=== PATIENT | female | born 1990 | race Caucasian/White ===

== ENCOUNTER 2017-12-26 07:27 | Outpatient (CLI) | payer OTHER ==
[2017-12-26 10:40] LABS: ALBUMIN 4.4 g/dL (3.2-5.5); ALBUMIN/GLOBULIN RATIO 1.4 (1.0-2.2); CALCIUM 9.4 mg/dL (8.5-10.3); CREATININE 0.7 mg/dL (0.4-1.0); TOTAL PROTEIN 7.5 g/dL (6.7-8.2)
[2017-12-26 10:48] LABS: BASOPHILS # (AUTO) 0.1 10^3/uL (0.0-0.1); BASOPHILS % (AUTO) 1.1 %; EOSINOPHILS # (AUTO) 0.1 10^3/uL (0.0-0.7); EOSINOPHILS % (AUTO) 1.7 %; HGB - HEMOGLOBIN 13.6 g/dL (12.0-16.0); LYMPHOCYTES % (AUTO) 20.9 %; MEAN CORPUSCULAR HEMOGLOBIN 31.6 pg (27.0-31.0); MEAN CORPUSCULAR VOLUME 93.2 fL (81.0-99.0); MEAN PLATELET VOLUME 8.4 fL (7.9-10.8); MONOCYTES # (AUTO) 0.4 10^3/uL (0.0-1.0); MONOCYTES % (AUTO) 9.5 %; NEUTROPHILS # (AUTO) 3.1 10^3/uL (1.5-6.6); NEUTROPHILS % (AUTO) 66.8 %; PLT - PLATELET COUNT 242 10^3/uL (130-450); RED BLOOD COUNT 4.31 10^6/uL (4.20-5.40); RED CELL DISTRIBUTION WIDTH 12.6 % (12.0-15.0); WHITE BLOOD COUNT 4.6 x10^3/uL (4.8-10.8)
[2017-12-26 10:58] LABS: THYROID STIMULATING HORMONE 2.07 uIU/mL (0.34-5.60)
[2017-12-26 11:00] LABS: FREE T4 (FREE THYROXINE) 0.98 ng/dL (0.58-1.64)
== END 2017-12-26 07:28 | disposition home or self-care (01) ==
LOC: LAB.F 07:27
PROVIDERS: ATTEND Registered Nurse
DX: F41.1 Generalized anxiety disorder (principal)
CPT/HCPCS: 36415; 80053; 84439; 84443; 84481; 85025

== ENCOUNTER 2020-01-13 12:22 | Outpatient (CLI) | payer OTHER | END 2020-01-13 12:23 | disposition home or self-care (01) | LOC: COV 12:22 | PROVIDERS: ATTEND Family Medicine | DX: Z20.828 Contact with and (suspected) exposure to other viral communicable diseases (principal) ==

== ENCOUNTER 2020-04-19 11:54 | Outpatient (CLI) | payer OTHER | END 2020-04-19 11:55 | disposition home or self-care (01) | LOC: COV 11:54 | PROVIDERS: ATTEND Family Medicine | DX: R05 Cough (principal); R07.0 Pain in throat; R09.81 Nasal congestion; Z20.822 Contact with and (suspected) exposure to COVID-19 ==

== ENCOUNTER 2021-03-25 11:03 | Outpatient (CLI) | payer OTHER ==
[2021-03-25 15:43] LABS: BASOPHILS # (AUTO) 0.1 10^3/uL (0.0-0.1); BASOPHILS % (AUTO) 0.9 %; EOSINOPHILS # (AUTO) 0.3 10^3/uL (0.0-0.7); EOSINOPHILS % (AUTO) 3.1 %; HCT - HEMATOCRIT 39.3 % (37.0-47.0); HGB - HEMOGLOBIN 12.5 g/dL (12.0-16.0); LYMPHOCYTES # (AUTO) 1.8 10^3/uL (1.5-3.5); LYMPHOCYTES % (AUTO) 22.5 %; MEAN CORPUSCULAR HEMOGLOBIN 28.5 pg (27.0-31.0); MEAN CORPUSCULAR HGB CONC 31.8 g/dL (32.0-36.0); MEAN CORPUSCULAR VOLUME 89.5 fL (81.0-99.0); MEAN PLATELET VOLUME 9.9 fL (7.9-10.8); MONOCYTES # (AUTO) 0.5 10^3/uL (0.0-1.0); MONOCYTES % (AUTO) 6.7 %; NEUTROPHILS # (AUTO) 5.3 10^3/uL (1.5-6.6); NEUTROPHILS % (AUTO) 66.4 %; PLT - PLATELET COUNT 427 10^3/uL (130-450); RED BLOOD COUNT 4.39 10^6/uL (4.20-5.40); RED CELL DISTRIBUTION WIDTH 12.3 % (12.0-15.0); WHITE BLOOD COUNT 7.9 x10^3/uL (4.8-10.8)
[2021-03-25 15:59] LABS: ALBUMIN 3.6 g/dL (3.2-5.5); BILIRUBIN,TOTAL 0.4 mg/dL (0.2-1.0); CALCIUM 8.9 mg/dL (8.5-10.3); CREATININE 0.7 mg/dL (0.4-1.0); POTASSIUM 3.8 mmol/L (3.5-5.0); TOTAL PROTEIN 7.1 g/dL (6.7-8.2)
[2021-03-25 16:08] LABS: THYROID STIMULATING HORMONE 1.73 uIU/mL (0.34-5.60)
== END 2021-03-25 11:04 | disposition home or self-care (01) ==
LOC: LAB.S 11:03
PROVIDERS: ATTEND Physician Assistant
DX: R53.83 Other fatigue (principal); N92.0 Excessive and frequent menstruation with regular cycle
CPT/HCPCS: 36415; 80053; 83540; 84443; 84466; 85025

== ENCOUNTER 2022-11-19 13:18 | Outpatient (CLI) | payer OTHER ==
[2022-11-19 20:11] LABS: BASOPHILS # (AUTO) 0.1 10^3/uL (0.0-0.1); BASOPHILS % (AUTO) 0.9 %; EOSINOPHILS # (AUTO) 0.1 10^3/uL (0.0-0.7); EOSINOPHILS % (AUTO) 1.1 %; HCT - HEMATOCRIT 30.3 % (37.0-47.0); HGB - HEMOGLOBIN 8.7 g/dL (12.0-16.0); LYMPHOCYTES # (AUTO) 2.2 10^3/uL (1.5-3.5); LYMPHOCYTES % (AUTO) 18.9 %; MEAN CORPUSCULAR HGB CONC 28.7 g/dL (32.0-36.0); MEAN CORPUSCULAR VOLUME 76.7 fL (81.0-99.0); MEAN PLATELET VOLUME 9.4 fL (7.9-10.8); MONOCYTES # (AUTO) 0.8 10^3/uL (0.0-1.0); NEUTROPHILS # (AUTO) 8.3 10^3/uL (1.5-6.6); NEUTROPHILS % (AUTO) 71.8 %; PLT - PLATELET COUNT 580 10^3/uL (130-450); RED BLOOD COUNT 3.95 10^6/uL (4.20-5.40); RED CELL DISTRIBUTION WIDTH 16.2 % (12.0-15.0); WHITE BLOOD COUNT 11.5 x10^3/uL (4.8-10.8)
[2022-11-19 20:18] LABS: % IRON SATURATION 3 % (20-50); ALBUMIN 3.6 g/dL (3.2-5.5); ALBUMIN/GLOBULIN RATIO 1.2 (1.0-2.2); ALKALINE PHOSPHATASE 94 IU/L (42-121); ALT ALANINE AMINOTRANSFERASE 19 IU/L (10-60); AST ASPARTATE AMINOTRANSFERASE 24 IU/L (10-42); BILIRUBIN,TOTAL 0.3 mg/dL (0.2-1.0); BUN - BLOOD UREA NITROGEN 4 mg/dL (6-20); CALCIUM 8.6 mg/dL (8.5-10.3); CARBON DIOXIDE - CO2 28 mmol/L (21-32); CHLORIDE 104 mmol/L (101-111); CHOL/HDL RATIO 2.6 (<4.4); CHOLESTEROL 174 mg/dL; CREATININE 0.6 mg/dL (0.6-1.3); GFR - MDRD 117 (>89); GLUCOSE 106 mg/dL (74-104); HDL CHOLESTEROL 67 mg/dL; IRON 15 ug/dL (50-212); LDL CHOLESTEROL,CALCULATED 91 mg/dL; LDL/HDL RATIO 1.4 (<4.4); POTASSIUM 3.7 mmol/L (3.5-4.5); SODIUM 137 mmol/L (135-145); TOTAL IRON BINDING CAPACITY 577 ug/dL (250-450); TOTAL PROTEIN 6.6 g/dL (6.4-8.9); TRANSFERRIN 412 mg/dL (203-362); TRIGLYCERIDES 82 mg/dL (48-352); VLDL CHOLESTEROL 16 mg/dL
[2022-11-19 20:34] LABS: THYROID STIMULATING HORMONE 1.93 uIU/mL (0.34-5.60)
[2022-11-19 20:39] LABS: FERRITIN 4.9 ng/mL (11.0-306.8)
== END 2022-11-19 13:19 | disposition home or self-care (01) ==
LOC: LAB.S 13:18
PROVIDERS: ATTEND Physician Assistant
DX: Z13.9 Encounter for screening, unspecified (principal); N92.0 Excessive and frequent menstruation with regular cycle
CPT/HCPCS: 36415; 80053; 80061; 82728; 83540; 83721; 84443; 84466; 85025

== ENCOUNTER 2023-01-14 13:10 | Outpatient (CLI) | payer OTHER ==
[2023-01-14 19:57] LABS: BASOPHILS # (AUTO) 0.1 10^3/uL (0.0-0.1); BASOPHILS % (AUTO) 0.8 %; EOSINOPHILS # (AUTO) 0.1 10^3/uL (0.0-0.7); EOSINOPHILS % (AUTO) 0.4 %; HCT - HEMATOCRIT 38.3 % (37.0-47.0); HGB - HEMOGLOBIN 11.9 g/dL (12.0-16.0); LYMPHOCYTES # (AUTO) 1.6 10^3/uL (1.5-3.5); LYMPHOCYTES % (AUTO) 12.5 %; MEAN CORPUSCULAR HEMOGLOBIN 28.5 pg (27.0-31.0); MEAN CORPUSCULAR HGB CONC 31.1 g/dL (32.0-36.0); MEAN CORPUSCULAR VOLUME 91.8 fL (81.0-99.0); MEAN PLATELET VOLUME 9.3 fL (7.9-10.8); MONOCYTES # (AUTO) 0.8 10^3/uL (0.0-1.0); NEUTROPHILS # (AUTO) 10.2 10^3/uL (1.5-6.6); NEUTROPHILS % (AUTO) 79.9 %; NRBC ABSOLUTE COUNT (AUTO) 0.03 x10^3/uL; NUCLEATED RED BLOOD CELLS AUTO 0.2 /100WBC; PLT - PLATELET COUNT 487 10^3/uL (130-450); RED BLOOD COUNT 4.17 10^6/uL (4.20-5.40); RED CELL DISTRIBUTION WIDTH 24.4 % (12.0-15.0); WHITE BLOOD COUNT 12.7 x10^3/uL (4.8-10.8)
[2023-01-14 20:28] LABS: FERRITIN 98.6 ng/mL (11.0-306.8)
[2023-01-14 21:00] LABS: PLATELET ESTIMATE, MANUAL INCREASED (>450,000) (NORMAL); PLATELET MORPHOLOGY NORMAL APPEARANCE (NORMAL); SLIDE REVIEW? Indicated
== END 2023-01-14 13:11 | disposition home or self-care (01) ==
LOC: LAB.S 13:10
PROVIDERS: ATTEND Physician Assistant
DX: D50.9 Iron deficiency anemia, unspecified (principal)
CPT/HCPCS: 36415; 82728; 83540; 84466; 85025

== ENCOUNTER 2023-01-29 10:06 | Outpatient (CLI) | payer OTHER ==
[2023-01-29 10:15] LABS: HCT - HEMATOCRIT 36.8 % (37.0-47.0); HGB - HEMOGLOBIN 11.3 g/dL (12.0-16.0); MEAN CORPUSCULAR HEMOGLOBIN 30.3 pg (27.0-31.0); MEAN CORPUSCULAR HGB CONC 30.7 g/dL (32.0-36.0); MEAN CORPUSCULAR VOLUME 98.7 fL (81.0-99.0); MEAN PLATELET VOLUME 8.6 fL (7.9-10.8); RED BLOOD COUNT 3.73 10^6/uL (4.20-5.40); RED CELL DISTRIBUTION WIDTH 19.5 % (12.0-15.0); WHITE BLOOD COUNT 7.6 x10^3/uL (4.8-10.8)
[2023-01-29 10:28] LABS: CHOL/HDL RATIO 2.9 (<4.4); CHOLESTEROL 179 mg/dL; GLUCOSE,FASTING 110 mg/dL (74-104); HDL CHOLESTEROL 61 mg/dL; LDL CHOLESTEROL,CALCULATED 95 mg/dL; LDL/HDL RATIO 1.6 (<4.4); TRIGLYCERIDES 117 mg/dL (48-352); VLDL CHOLESTEROL 23 mg/dL
[2023-01-29 10:44] LABS: THYROID STIMULATING HORMONE 1.92 uIU/mL (0.34-5.60)
[2023-01-29 12:00] LABS: ESTIMATED AVERAGE GLUCOSE 80 mg/dL (70-100); HEMOGLOBIN A1c% 4.4 % (4.27-6.07)
== END 2023-01-29 10:07 | disposition home or self-care (01) ==
LOC: LAB 10:06
PROVIDERS: ATTEND Obstetrics & Gynecology
DX: N93.9 Abnormal uterine and vaginal bleeding, unspecified (principal); Z13.220 Encounter for screening for lipoid disorders
CPT/HCPCS: 36415; 80061; 82947; 83036; 83721; 84443; 85027

== ENCOUNTER 2023-02-12 13:06 | Outpatient (CLI) | payer OTHER ==
[2023-02-12 14:34] LABS: BASOPHILS # (AUTO) 0.1 10^3/uL (0.0-0.1); EOSINOPHILS # (AUTO) 0.1 10^3/uL (0.0-0.7); EOSINOPHILS % (AUTO) 1.3 %; HCT - HEMATOCRIT 34.2 % (37.0-47.0); HGB - HEMOGLOBIN 10.4 g/dL (12.0-16.0); LYMPHOCYTES # (AUTO) 1.7 10^3/uL (1.5-3.5); MEAN CORPUSCULAR HEMOGLOBIN 31.5 pg (27.0-31.0); MEAN CORPUSCULAR HGB CONC 30.4 g/dL (32.0-36.0); MEAN CORPUSCULAR VOLUME 103.6 fL (81.0-99.0); MEAN PLATELET VOLUME 9.2 fL (7.9-10.8); MONOCYTES # (AUTO) 0.8 10^3/uL (0.0-1.0); MONOCYTES % (AUTO) 7.9 %; NEUTROPHILS # (AUTO) 7.2 10^3/uL (1.5-6.6); NEUTROPHILS % (AUTO) 72.4 %; NRBC ABSOLUTE COUNT (AUTO) 0.03 x10^3/uL; NUCLEATED RED BLOOD CELLS AUTO 0.3 /100WBC; PLT - PLATELET COUNT 510 10^3/uL (130-450); RED CELL DISTRIBUTION WIDTH 15.4 % (12.0-15.0)
== END 2023-02-12 13:07 | disposition home or self-care (01) ==
LOC: LAB.S 13:06
PROVIDERS: ATTEND Obstetrics & Gynecology
DX: Z01.812 Encounter for preprocedural laboratory examination (principal); D25.9 Leiomyoma of uterus, unspecified
CPT/HCPCS: 36415; 81025; 85025

== ENCOUNTER 2023-02-14 06:18 | Day surgery (SDC) | payer OTHER ==
[2023-02-14] MEDS ORDERED: ceFAZolin 2 GM VIAL ONE (06:28)
[2023-02-14] MEDS ORDERED: ACETAMINOPHEN 325 MG TABLET PO ONE (06:28)
[2023-02-14] MEDS ORDERED: metroNIDAZOLE 500 MG/100 ML 500 MG/100 ML BAG ONE (06:28)
[2023-02-14] MEDS ORDERED: LACTATED RINGERS 1,000 ML IV ONE ×2 (06:40→09:31)
[2023-02-14] MEDS ORDERED: BUPIVACAINE 0.5%-EPI 1:200000 PF 30 ML VIAL ONE (07:10)
[2023-02-14] MEDS ORDERED: fentaNYL 100 MCG/2 ML VIAL ONE (07:10)
[2023-02-14] MEDS ORDERED: PROPOFOL 200 MG/20 ML VIAL IVP ONE (07:10)
[2023-02-14] MEDS ORDERED: MIDAZOLAM 2 MG/2 ML VIAL ONE (07:10)
[2023-02-14] MEDS ORDERED: LIDOCAINE-MPF 1% 30 ML VIAL ONE (07:11)
[2023-02-14] MEDS ORDERED: LIDOCAINE 1%-EPI 1:100000 20 ML MDV ONE (07:11)
[2023-02-14] MEDS ORDERED: BUPIVACAINE 0.25% PF 30 ML VIAL ONE (07:11)
[2023-02-14 07:34] LABS: HCG UR QUAL NEGATIVE
[2023-02-14] MEDS ORDERED: DEXAMETHASONE 4 MG/ML VIAL ONE (08:39)
[2023-02-14] MEDS ORDERED: ONDANSETRON 4 MG/2 ML VIAL ONE (08:39)
[2023-02-14] MEDS ORDERED: HYDROmorphone 1 MG/ML CARPUJECT ONE (08:46)
[2023-02-14] MEDS ORDERED: KETOROLAC 30 MG/ML VIAL ONE (09:21)
--- NOTE | 2023-02-14 09:41 | ANESTHESIA ---
Pre-Anesthesia VS, & Labs - Diagnosis leiomyoma - Procedure hysterscopy with myomectomy Vital Signs: Temp Pulse Resp BP Pulse Ox O2 Flow Rate 36.2 C L 109 H 16 147/88 H 100 02/14/23 06:47 02/14/23 06:47 02/14/23 06:47 02/14/23 06:47 02/14/23 06:47 Height: 5 ft 5 in Weight (kg): 93.2 kg Body Mass Index: 34.2 BMI Classification: Obese - NPO >8 hours - Is Patient ?: No - Lab Results Lab results reviewed: Yes Home Medications and Allergies Home Medications: Ambulatory Orders Losartan [Cozaar] 50 mg PO DAILY 02/08/23 Multivitamin 1 each PO DAILY 02/08/23 buPROPion [Wellbutrin Xl] 150 mg PO DAILY 02/08/23 Losartan [Cozaar] 50 mg PO DAILY 02/08/23 Multivitamin 1 each PO DAILY 02/08/23 buPROPion [Wellbutrin Xl] 150 mg PO DAILY 02/08/23 Allergies/Adverse Reactions: Allergies Allergy/AdvReac Type Severity Reaction Status Date / Time No Known Drug Allergies Allergy Verified 12/21/22 10:53 Anes History & Medical History - Anesthetic History Anesthesia Complications: reports: No previous complications Family history of Anesthesia Complications: Denies Family history of Malignant Hyperthermia: Denies - Medical History Cardiovascular: reports: Hypertension Pulmonary: reports: None Gastrointestinal: reports: None Urinary: reports: None Neuro: reports: None Musculoskeletal: reports: None Endocrine/Autoimmune: reports: None Blood Disorders: reports: Anemia Skin: reports: None Smoking Status: Never smoker Psychosocial: reports: Anxiety, Alcohol (2-3 shots whiskey 2-3x per week), Cannabis (occ.) History of Cancer?: No Exam General: Alert, Oriented x3, Cooperative Dental: WNL Mouth Openin Fingerbreadth Neck Mobility: Normal Mallampati classification: II Thyromental Distance: 4-6 cm Respiratory: Lungs clear, Normal breath sounds, No respiratory distress Cardiovascular: Regular rate Neurological: Normal speech Mental/Cognitive Status: Alert/Oriented X3, Normal for patient Cognitive Status: Within normal limits Plan Anesthesia Type: General Consent for Procedure(s) Verified and Reviewed: Yes Code Status: Attempt Resuscitation ASA classification: 2-Mild systemic disease Is this case an emergency?: No
[2023-02-14] MEDS ORDERED: fentaNYL 100 MCG/2 ML VIAL IVP PRN (09:43)
[2023-02-14] MEDS ORDERED: ATROPINE ABBOJECT 1 MG/10 ML SYRINGE IVP PRN (09:43)
[2023-02-14] MEDS ORDERED: HYDROmorphone 0.5 MG/0.5 ML SYRINGE IVP PRN (09:43)
[2023-02-14] MEDS ORDERED: ONDANSETRON 4 MG/2 ML VIAL IVP PRN ×2 (09:43→09:48)
[2023-02-14] MEDS ORDERED: MORPHINE 2 MG/ML CARPUJECT IVP PRN (09:43)
[2023-02-14] MEDS ORDERED: NALOXONE 0.4 MG/ML VIAL IVP PRN (09:43)
[2023-02-14] MEDS ORDERED: oxyCODONE 5 MG TABLET PO PRN (09:48)
[2023-02-14] MEDS ORDERED: LACTATED RINGERS 1,000 ML IV SCH (10:00)
[2023-02-14 10:37] VITALS: BP 169/94; O2SAT 98
--- NOTE | 2023-02-14 11:55 | ANESTHESIA POST OP EVALUATION ---
Anesthesia Post Eval - Post Anesthesia Eval Vitals: Last Vital Signs Temp 36.1 C L 02/14/23 10:26 Pulse 98 02/14/23 10:26 Resp 16 02/14/23 10:26 BP 169/94 H 02/14/23 10:26 Pulse Ox 98 02/14/23 10:26 O2 Flow Rate CV Function Including HR & BP: Stable Pain Control: Satisfactory Nausea & Vomiting: Negative Mental Status: Baseline Respiratory Status: Airway Patent Hydration Status: Satisfactory Anesthesia Complications: None
--- NOTE | 2023-02-14 16:10 | OPERATIVE REPORT ---
Operative Report - General Procedure Date: 02/14/23 Planned Procedure: hysteroscopic myomectomy with Myosure device. Pre-Op Diagnosis: submucosal myoma Procedure Performed: hysteroscopic myomectomy with Myosure device. Post Op Diagnosis: submucosal myoma - Procedure Note Primary Surgeon: Krystyna Nguyễn MD Anesthesia Provider: Jose Alvarez CRNA Anesthesia Technique: General LMA Pathology: myoma fragments. IV Fluids (mL): 700 Estimated Blood Loss (mL): 10 Urine Output (mL): 0 Indications: bleeding from submucosal myoma not better with hormonal management. Findings: 2 fibroids on anterior uterus. about 1.5 and 2 cm next to each other. was not able to visualize with tubal orifices well. Complications: none - Other Other Information/Narrative: Patient with neg test. consents reviewed and signed. brought to OR and general anesthesia was given. prepped and draped with betadine. legs in Pepe type stirrups. exam done. time out done. speculum placed. cervix with small os. dilated easily. sounded to 11 cm. 6 mm hysteroscope placed. light in scope not working properly. many equipment pieces were replaced. able to see 2 myomas on anterior of uterus, completely submucosal. myosure Reach used to detached first smaller fibroid completely. second fibroid I got most of the base removed but then deficit was 2000 cc. much of the fluid was on the ground. but at that point, I felt that enough of the fibroid base had been removed and did not want to continue with such a high deficit that I was not able to quantify. I think what remains of that fibroid will fall off. I did try to pull it off with a polyp forceps but was not able to get it and after that, cervix leaked more water. I told family to expect that she will have some tissue coming out. Patient was awakened and brought to the PACU in stable condition. counts were correct.
== END 2023-02-14 06:19 | disposition home or self-care (01) ==
LOC: SDS 06:18
PROVIDERS: ATTEND Obstetrics & Gynecology
PROC: 0UB98ZZ Excision of Uterus, Via Natural or Artificial Opening Endoscopic (ICD-10-PCS; principal; 2023-02-14 07:30)
DX: D25.0 Submucous leiomyoma of uterus (principal); I10 Essential (primary) hypertension; E66.9 Obesity, unspecified; Z68.34 Body mass index [BMI] 34.0-34.9, adult; Z32.02 Encounter for pregnancy test, result negative
CPT/HCPCS: 58561; 81025; A9270; J1170; J7120

== ENCOUNTER 2023-03-07 07:02 | Outpatient (CLI) | payer OTHER ==
--- NOTE | 2023-03-07 13:34 | Ultrasound Report ---
PROCEDURE: Pelvic w/Transvaginal INDICATIONS: LEIOMYOMA TECHNIQUE: Real-time scanning was performed of the pelvic organs, with image documentation. Additional endovagi nal scanning was necessary due to incomplete visualization of the adnexal and endometrial structures by transabdominal scanning. COMPARISON: 11/26/2022 FINDINGS: Uterus: Uterus is anteverted and normal in size at 8.9 x 5.4 x 5.7 cm. The myometrium is heterogene ous with a 2.4 x 2.6 x 2.5 cm mixed echogenic focus within the endometrium. Previously seen intrauter ine fibroid is no longer visualized and likely surgically resected given history of myomectomy. No hy pervascularity. The endometrium measures 7 mm in combined thickness. Ovaries: The right ovary measures 2.3 x 1.5 x 1.9 cm, with a calculated ovarian volume of 3.45 cc. The left ovary measures 3.1 x 1.5 x 1.4 cm, with a calculated ovarian volume of 3.3 cc. The ovaries have a normal sonographic appearance. Less than 12 follicles can be seen in each ovary. No adnexal masses are seen. No cystic lesions measuring greater than 3 cm. Other: No pathologic free abdominal or pelvic fluid. IMPRESSION: Heterogeneous, mixed echogenic focus seen within the endometrium measuring 2.4 x 2.6 x 2.5 cm. Findin gs may represent post laminectomy changes versus less likely new endometrial mass. Previously describ ed submucosal uterine fibroid is no longer visualized and likely resected given history of myomectomy . Follow-up pelvic ultrasound recommended. Normal sonographic appearance of the bilateral ovaries/adnexa. Reviewed by: Obinna Garrido MD on 03/07/2023 1:33 PM PST Approved by: Obinna Garrido MD on 03/07/2023 1:33 PM PST Station ID: [id number]
== END 2023-03-07 07:03 | disposition home or self-care (01) ==
LOC: DI 07:02
PROVIDERS: ATTEND Obstetrics & Gynecology
DX: D25.0 Submucous leiomyoma of uterus (principal)

== ENCOUNTER 2023-03-14 06:31 | Day surgery (SDC) | payer OTHER ==
[~2023-03-14 06:31] MED LIST: ACETAMINOPHEN 325 MG TABLET PO ONE; ceFAZolin 2 GM VIAL ONE; metroNIDAZOLE 500 MG/100 ML 500 MG/100 ML BAG ONE
[2023-03-14 06:50] LABS: HCG UR QUAL NEGATIVE
[2023-03-14] MEDS ORDERED: LACTATED RINGERS 1,000 ML IV ONE ×2 (06:53→09:13)
[2023-03-14] MEDS ORDERED: PROPOFOL 200 MG/20 ML VIAL IVP ONE (07:15)
[2023-03-14] MEDS ORDERED: fentaNYL 100 MCG/2 ML VIAL ONE (07:15)
[2023-03-14] MEDS ORDERED: MIDAZOLAM 2 MG/2 ML VIAL ONE (07:16)
--- NOTE | 2023-03-14 07:24 | ANESTHESIA ---
Pre-Anesthesia VS, & Labs - Diagnosis unterine leiomyoma - Procedure hysterscopy with myosure leiomyoma removal Vital Signs: Temp Pulse Resp BP Pulse Ox O2 Flow Rate 36.1 C L 117 H 16 152/99 H 100 03/14/23 06:54 03/14/23 06:54 03/14/23 06:54 03/14/23 06:54 03/14/23 06:54 Height: 5 ft 5 in Weight (kg): 93.5 kg Body Mass Index: 34.2 BMI Classification: Obese - NPO >8 hours - Is Patient ?: No Home Medications and Allergies Losartan [Cozaar] 50 mg PO DAILY 02/08/23 Multivitamin 1 each PO DAILY 02/08/23 buPROPion [Wellbutrin Xl] 150 mg PO DAILY 02/08/23 Allergies/Adverse Reactions: Allergies Allergy/AdvReac Type Severity Reaction Status Date / Time No Known Drug Allergies Allergy Verified 03/14/23 07:02 Anes History & Medical History - Anesthetic History Anesthesia Complications: reports: No previous complications - Medical History Cardiovascular: reports: Hypertension Pulmonary: reports: None Gastrointestinal: reports: None Urinary: reports: None Neuro: reports: None Musculoskeletal: reports: None Endocrine/Autoimmune: reports: None Blood Disorders: reports: Anemia Skin: reports: None Smoking Status: Never smoker Psychosocial: reports: Anxiety History of Cancer?: No - Surgical History Gynecologic: reports: Other (hysterscopy) Exam General: Alert, Oriented x3, Cooperative, No acute distress Dental: WNL Mouth Openin Fingerbreadth Neck Mobility: Normal Mallampati classification: II Thyromental Distance: 4-6 cm Mental/Cognitive Status: Alert/Oriented X3, Normal for patient Plan Anesthesia Type: General Consent for Procedure(s) Verified and Reviewed: Yes Code Status: Attempt Resuscitation ASA classification: 2-Mild systemic disease Is this case an emergency?: No
[2023-03-14] MEDS ORDERED: HYDROmorphone 0.5 MG/0.5 ML SYRINGE IVP PRN (07:27)
[2023-03-14] MEDS ORDERED: ONDANSETRON 4 MG/2 ML VIAL IVP PRN ×2 (07:27→09:59)
[2023-03-14] MEDS ORDERED: NALOXONE 0.4 MG/ML VIAL IVP PRN (07:27)
[2023-03-14] MEDS ORDERED: fentaNYL 100 MCG/2 ML VIAL IVP PRN (07:27)
[2023-03-14] MEDS ORDERED: ATROPINE ABBOJECT 1 MG/10 ML SYRINGE IVP PRN (07:27)
[2023-03-14] MEDS ORDERED: MORPHINE 2 MG/ML CARPUJECT IVP PRN (07:27)
[2023-03-14] MEDS ORDERED: ONDANSETRON 4 MG/2 ML VIAL ONE (07:58)
[2023-03-14] MEDS ORDERED: DEXAMETHASONE 4 MG/ML VIAL ONE (07:58)
[2023-03-14] MEDS ORDERED: KETOROLAC 30 MG/ML VIAL ONE (07:58)
[2023-03-14] MEDS ORDERED: LACTATED RINGERS 1,000 ML IV SCH (08:00)
[2023-03-14] MEDS ORDERED: HYDROmorphone 1 MG/ML CARPUJECT ONE (08:41)
[2023-03-14 09:58] VITALS: BP 155/96; O2SAT 97
[2023-03-14] MEDS ORDERED: oxyCODONE 5 MG TABLET PO PRN (09:59)
--- NOTE | 2023-03-14 10:25 | HISTORY & PHYSICAL EXAMINATION ---
HPI - Admitted From Admitted from: Direct admit - History Obtained From Records Reviewed: RN notes reviewed History obtained from: Patient Exam limitations: No limitations - History of Present Illness HPI Comment/Other: Patient is s/p hysteroscopy with myomectomy 4 weeks ago. At that time, I was not able to get her entire fibroid out before the deficit max was reached. She continues to bleed every day, some days heavy. She is quite frustrated. She is here today for me to remove the rest of the fibroid. She did have depo Provera injection about 8 weeks ago. She has tried TXA to stop the bleeding both before and after her first procedure and it has not helped. Most recent ultrasound did not show a discrete fibroid. 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 denies: Fever - Genitourinary Genitourinary: reports: Other (some cramps and continue bleeding, sometimes with clots.) Exam - Vital Signs Reviewed Vital Signs: Yes Vital Signs: Vital Signs x48h Temp Pulse Resp BP Pulse Ox 03/14/23 09:52 97.2 F L 102 H 14 155/96 H 97 03/14/23 09:40 97.9 F 86 14 136/91 H 98 03/14/23 09:35 97.9 F 90 16 135/82 H 98 03/14/23 09:30 97.9 F 93 14 129/76 97 03/14/23 09:25 97.5 F L 97 14 139/81 H 96 03/14/23 09:20 97.3 F L 101 H 15 133/83 H 96 03/14/23 09:15 97.3 F L 101 H 16 140/84 H 98 03/14/23 09:11 97.3 F L 106 H 18 134/84 H 98 03/14/23 06:54 97.0 F L 117 H 16 152/99 H 100 - Physical Exam General Appearance: positive: No acute distress, Alert Respiratory: positive: No respiratory distress Cardiovascular: positive: Regular rate & rhythm Abdomen: positive: Non-tender Results - Lab Results Other Lab Results: Lab Results x24hrs 03/14/23 Range/Units 06:32 Urine HCG, Qual NEGATIVE Impression/Plan - Problem List Problem List: submucosal myoma still present. was not removed completely with first hysteroscopy. Here today for another procedure to remove the fibroid and hopefully with this she will stop bleeding. Procedure, consents reviewed and signed.
--- NOTE | 2023-03-14 10:31 | OPERATIVE REPORT ---
Operative Report - General Procedure Date: 03/14/23 Planned Procedure: Hysteroscopic Myomectomy Pre-Op Diagnosis: Submucosal myoma Procedure Performed: Hysteroscopic Myomectomy using Myosure device. Post Op Diagnosis: myoma removed - Procedure Note Primary Surgeon: Krystyna Nguyễn MD Anesthesia Provider: Zeny Alvarez CRNA Anesthesia Technique: General LMA Pathology: uterine myoma IV Fluids (mL): 800 Estimated Blood Loss (mL): 50 Urine Output (mL): 0 Indications: bleeding from uterine submucosal myoma that was incompletely removed after hysteroscopic myomectomy 4 weeks ago. Here today to remove the rest of the myomas. Complications: approximately 3.5 cm myoma on a 6 mm stalk near the posterior fundus of uterus. - Other Other Information/Narrative: Patient has signed consents. Flagyl 500 mg and Ancef 2 gm given iv. Brought to OR where LMA general anesthesia is given. Put in Pepe stirrups and prepped. time out done. Exam under anesthesia done. Speculum placed. cervix grasped with a single tooth tenaculum. Dilated to allow 6 mm hysteroscope to pass. placed and cavity viewed. great visualization. Approx 3.5 cm fibroid present near fundus on a stalk. At the procedure 4 weeks ago there was another fibroid as well, but it looks like no procedure had been done to this fibroid, which surprised me. There were some clots in the cavity that came out. No active bleeding was seen. The tubal ostia were not visible clearly, them must be very small with the depo Provera as I could see the entire cavity quite clearly. I think I saw tiny dots bilaterally. The Myosure Reach was used to remove the fibroid at its base and then remove as much of the tissue as possible. I tried to pull out pieces with a curette and a polyp forceps but did not grasp them. I was not able to collect them with the Myosure as they kept floating away. In the end, their were 6 small fragments of myoma sitting on the posterior uterus loose. They were about 0.5 cm wide or less. This was explained to patient and her mom and photographed. They will pass on their own. The procedure was then completed. Instruments were removed. Patient was awakened and brought to recovery room in stable condition. Pictures and procedure reviewed with her mom and then with Jo once she was awake. Fluid deficit from Myosure 950 cc.
--- NOTE | 2023-03-14 10:44 | ANESTHESIA POST OP EVALUATION ---
Anesthesia Post Eval - Post Anesthesia Eval Vitals: Last Vital Signs Temp 36.2 C L 03/14/23 09:52 Pulse 102 H 03/14/23 09:52 Resp 14 03/14/23 09:52 BP 155/96 H 03/14/23 09:52 Pulse Ox 97 03/14/23 09:52 O2 Flow Rate CV Function Including HR & BP: Stable Pain Control: Satisfactory Nausea & Vomiting: Negative Mental Status: Baseline Respiratory Status: Airway Patent Hydration Status: Satisfactory Anesthesia Complications: None
== END 2023-03-14 06:32 | disposition home or self-care (01) ==
LOC: SDS 06:31
PROVIDERS: ATTEND Obstetrics & Gynecology
PROC: 0UB98ZZ Excision of Uterus, Via Natural or Artificial Opening Endoscopic (ICD-10-PCS; principal; 2023-03-14 07:30)
DX: D25.0 Submucous leiomyoma of uterus (principal); N93.9 Abnormal uterine and vaginal bleeding, unspecified; E66.9 Obesity, unspecified; Z68.34 Body mass index [BMI] 34.0-34.9, adult; I10 Essential (primary) hypertension
CPT/HCPCS: 58561; 81025; A9270; J1170; J7120

== ENCOUNTER 2023-11-11 18:06 | Emergency (ER) | payer OTHER ==
[2023-11-11 18:24] VITALS: BP 155/95; O2SAT 97
[2023-11-11] MEDS: KETOROLAC 60 MG/2 ML VIAL IM STA (21:41)
[2023-11-11] MEDS: predniSONE 20 MG TABLET PO STA (21:41)
[2023-11-11] MEDS: oxyCODONE 5 MG TABLET PO STA (21:41)
--- NOTE | 2023-11-11 21:46 | ED Physician Documentation ---
History of Present Illness - Stated complaint Stated Complaint: RT LEG PX - Chief complaint Chief Complaint: Ext Problem - History obtained from History obtained from: Patient - History of Present Illness Timing: How many weeks ago (3) Pain level max: 7 Pain level now: 7 - Additonal information Additional information: 33-year-old female presents to the emergency department. We have the right sided low back pain. She states that the pain radiates down the right leg. No numbness or tingling. Worse with standing and walking. Worse with movement. No loss of bowel or bladder control. No fevers. No chills. No trauma. Denies any possibility of . Is taking Motrin and Tylenol without relief. Has not been seen for this previously. Does not use IV drugs. Review of Systems Constitutional: denies: Fever, Chills : denies: Unable to Void, Incontinent, Now EGA Musculoskeletal: denies: Neck pain Neurologic: denies: Head injury PD PAST MEDICAL HISTORY - Past Medical History Past Medical History: Yes Cardiovascular: Hypertension Respiratory: None Neuro: None Endocrine/Autoimmune: None GI: None ROOFER METAL: Fibroids, Other : None HEENT: Chronic vision loss Psych: Anxiety, Panic attacks Musculoskeletal: None Derm: None - Past Surgical History Past Surgical History: Yes /ROOFER METAL: Other - Present Medications Home Medications: Ambulatory Orders Medication Instructions Recorded Confirmed Losartan [Cozaar] 50 mg PO DAILY 02/08/23 03/13/23 Multivitamin 1 each PO DAILY 02/08/23 03/13/23 buPROPion [Wellbutrin Xl] 150 mg PO DAILY 02/08/23 03/13/23 Meloxicam [Mobic] 7.5 mg PO BID PRN #20 tablet 11/11/23 methylPREDNISolone [Medrol] 4 mg PO DAILY #1 tab 11/11/23 oxyCODONE [Roxicodone] 5 - 10 mg PO Q6H PRN #14 tablet 11/11/23 MDD 6 - Allergies Allergies/Adverse Reactions: Allergies Allergy/AdvReac Type Severity Reaction Status Date / Time No Known Drug Allergies Allergy Verified 11/11/23 18:11 - Social History Does the pt smoke?: No Smoking Status: Never smoker Does the pt drink ETOH?: Yes Does the pt have substance abuse?: No - Immunizations Immunizations are current?: Yes - POLST Patient has POLST: No PD ED PE NORMAL - Vitals Vital signs reviewed: Yes - General General: Alert and oriented X 3, No acute distress - HEENT HEENT: PERRL - Cardiac Cardiac: RRR, Strong equal pulses - Respiratory Respiratory: No respiratory distress, Clear bilaterally - Abdomen Abdomen: Soft, Non tender, Non distended - Back Back: No spinal TTP (no midline tenderness to palpation or percussion. No step off or deformity. ) - Derm Derm: Warm and dry - Extremities Extremities: No edema - Neuro Neuro: Alert and oriented X 3, No motor deficit, No sensory deficit, Other (Normal bilateral lower extremity patellar and ankle jerk reflexes. Normal great toe extension bilaterally. no saddle anesthesia) - Psych Psych: Normal mood, Normal affect Results - Vitals Vitals: Vital Signs - 24 hr 11/11/23 18:11 Temperature 36.3 C L Heart Rate 109 H Respiratory 16 Rate Blood Pressure 155/95 H O2 Saturation 97 PD Medical Decision Making - ED course Complexity details: re-evaluated patient, considered differential (no cauda equina, no epidural abscess.) ED course: Patient's history and physical exam is consistent with sciatica. No evidence of cauda equina. No evidence of epidural abscess. No focal neurological deficits. Ambulating without difficulty. We will place on pain medication and steroids for Home. We will have her follow up with her doctor for further care. May include physical therapy and an MRI.Patient counseled regarding signs and symptoms for which I believe an urgent re-evaluation would be necessary. Patient with good understanding of and agreement to plan and is comfortable going home at this time.This document was made in part using voice recognition software. While efforts are made to proofread this document, sound alike and grammatical errors may occur. Departure - Departure Disposition: Home, Self Care Clinical Impression: Sciatica Qualifiers: Laterality: right Qualified Code(s): M54.31 - Sciatica, right side Condition: Good Instructions: ED Sciatica Follow-Up: your,doctor in 1 week [Other] Prescriptions: methylPREDNISolone [Medrol] 4 mg PO DAILY #1 tab Meloxicam [Mobic] 7.5 mg PO BID PRN #20 tablet PRN Reason: Pain oxyCODONE [Roxicodone] 5 - 10 mg PO Q6H PRN #14 tablet MDD 6 PRN Reason: pain Comments: Your prescriptions were sent to [facility] in [place]. As we discussed you appear to have sciatica today. The steroid should help decrease the inflammation in your back. Your doctor may want to order an MRI or refer you to physical therapy. Please return if you worsen. I am prescribing a short course of narcotic pain medication for you. These are potentially dangerous and addictive medications that should be used carefully. These medications may constipate you. Take an [id number] stool softener (docusate) twice daily with plenty of water while taking these medications. If you go 24 hours without a bowel movement, take [id number] miralax, per package instructions. Do not drink or drive while taking these medications. If you received narcotic or sedating medications while in the emergency department, do not drive for 24 hours. Store this medication in a safe, secure place and out of reach of children. It is a violation of federal law to give or sell this medication to another person or to use in a manner other than prescribed. The ED will not refill narcotic prescriptions, including prescriptions lost or stolen. To dispose of unwanted medications: 1. [facility] [address] in [place] has a medication drop box. They accept prescription medications (in pill form) Saturday through Saturday 9:00 a.m. to 5:00 p.m. 2. [facility] accepts prescription medications (in pill form only) for disposal year round. Call for more information. 3. Contact the [facility] for the next [facility] sponsored prescription drug collection event. , [phone], or [phone]; Forms: PCP List Discharge Date/Time: 11/11/23 22:17
== END 2023-11-11 22:17 | disposition home or self-care (01) ==
LOC: ED 18:06
DX: M54.31 Sciatica, right side (principal); I10 Essential (primary) hypertension; Z79.899 Other long term (current) drug therapy
CPT/HCPCS: 96372; 99283; A9270; J7512

== ENCOUNTER 2023-11-21 07:00 | Outpatient (CLI) | payer OTHER ==
--- NOTE | 2023-11-21 15:51 | XRAY Report ---
PROCEDURE: Lumbar Spine 2-3V INDICATIONS: RIGHT SCIATICA TECHNIQUE: 2 views of the lumbar spine were acquired. COMPARISON: None. FINDINGS: Surgical change: None. Bones: 5 [id number] vertebrae are present. There is normal bony alignment. No vertebral body co mpression fractures. No suspicious bony lesions. Mild disc height loss L4-5. Otherwise normal disc s pacing. Soft tissues: Overlying bowel gas pattern is normal. No suspicious soft tissue calcifications. IMPRESSION: Mild disc degeneration L4-5. Reviewed by: Gena Gutierrez MD on 11/21/2023 3:50 PM PDT Approved by: Gena Gutierrez MD on 11/21/2023 3:50 PM PDT Station ID: [id number]
== END 2023-11-21 23:59 | disposition home or self-care (01) ==
LOC: DI.S 07:00
PROVIDERS: ATTEND Emergency Medicine
DX: M51.36 Other intervertebral disc degeneration, lumbar region (principal)